=== PATIENT | male | born 1975 | race Caucasian/White ===

== ENCOUNTER 2017-03-23 14:08 | Emergency (ER) | payer BC ==
[~2017-03-23] VITALS: Ht 180.3 cm; Wt 142.4 kg
[2017-03-23 14:20] VITALS: TEMP 37; Ht 180.3 cm; Wt 142.4 kg
--- NOTE | 2017-03-23 14:55 | EMERGENCY ROOM VISIT NOTE ---
History First contact with patient: 14:39 Chief Complaint: FLANK PAIN Stated Complaint: CLAMMY,SWEATY,R SIDE KIDNEY PAIN,BURN W/ URINATION History of Present Illness The patient is a 41 year old male who presents to the Emergency Room with complaints of right sided flank pain and dysuria. The patient woke up this morning at 4am with right sided flank pain that was sharp, 4/10, constant pain. Throughout the day the pain became worse reaching a 10/10 and began to radiate to his right lower quadrant/groin region. The patient also states that his urine began to change color becoming light and then dark orange at about 9am. He also states that he is having a minor amount of hesitancy with urination in addition to burning sensation. He has not had much of an appetite today, only eating an apple and banana, and has the sensation of butterflies in his stomach. He does have a previous history of kidney stones for which he was treated at [facility] with Flomax and pain medication. Review of Systems See HPI for pertinent positives and negatives. A total of ten systems were reviewed and were otherwise negative. Constitutional: No fever, No chills, No fatigue Respiratory: No cough, No sputum, No shortness of breath Cardiovascular: No chest pain, No edema, No palpitations Abdomen: No pain, No nausea, No vomiting, No diarrhea, No constipation Genitourinary - Male: + hematuria, + dysuria, + urinary hesitancy, No urinary urgency, No urinary retention, No urinary incontinence Neurologic: No numbness/tingling, No vertigo Past Medical/Surgical History Medical Problems: (1) Kidney stones Surgical Problems: (1) Hx of tonsillectomy Social History Smoking Status: Never Smoker Current/Historical Medications Scheduled Aspirin (Aspirin 81), 81 MG PO DAILY Ipratropium-Albuterol (Combivent Respimat), 1 PUFFS INH QID Multiple Vitamin (Multivitamin), 1 TAB PO DAILY Physical Exam Vital Signs Date Time Temp Pulse Resp B/P (MAP) Pulse Ox O2 Delivery O2 Flow Rate FiO2 03/23/17 17:41 72 16 124/72 96 Room Air 03/23/17 16:41 85 16 122/72 96 Room Air 03/23/17 14:20 37.0 97 20 129/88 96 Room Air Physical Exam GENERAL: Awake, alert, well-appearing, in no distress HENT: Normocephalic, atraumatic. EYES: Normal conjunctiva. Sclera non-icteric. NECK: Supple. No nuchal rigidity. RESPIRATORY: Clear to auscultation. CARDIAC: Regular rate, normal rhythm. Extremities warm and well perfused. Pulses equal. ABDOMEN: Soft, non-distended. No tenderness to palpation. No rebound or guarding. No masses. RECTAL: Deferred. MUSCULOSKELETAL: Chest examination reveals no tenderness. The back is symmetrical on inspection without obvious abnormality. Right sided CVA tenderness to palpation. No joint edema. LOWER EXTREMITIES: Calves are equal size bilaterally and non-tender. No edema. No discoloration. NEURO: Normal sensorium. No sensory or motor deficits noted. SKIN: No rash or jaundice noted. Medical Decision & Procedures Laboratory Results 03/23/17 15:25 Red Blood Count 5.25, Mean Corpuscular Volume 89.3, Mean Corpuscular Hemoglobin 29.0, Mean Corpuscular Hemoglobin Concent 32.4, Mean Platelet Volume 9.6, Neutrophils (%) (Auto) 86.9, Lymphocytes (%) (Auto) 8.1, Monocytes (%) (Auto) 4.3, Eosinophils (%) (Auto) 0.2, Basophils (%) (Auto) 0.1, Neutrophils # (Auto) 11.00, Lymphocytes # (Auto) 1.03, Monocytes # (Auto) 0.54, Eosinophils # (Auto) 0.02, Basophils # (Auto) 0.01 03/23/17 15:25 Test 03/23/17 00:00 03/23/17 15:25 Urine Color DK YELLOW Urine Appearance CLOUDY (CLEAR) Urine pH 7.0 (4.5-7.5) Urine Specific [place] 1.021 (1.000-1.030) Urine Protein TRACE (NEG) Urine Glucose (UA) NEG (NEG) Urine Ketones TRACE (NEG) Urine Occult Blood 3+ (NEG) Urine Nitrite NEG (NEG) Urine Bilirubin NEG (NEG) Urine Urobilinogen NEG (NEG) Urine Leukocyte Esterase SMALL (NEG) Urine WBC (Auto) 5-10 /hpf (0-5) Urine RBC (Auto) >30 /hpf (0-4) Urine Hyaline Casts (Auto) 1-5 /lpf (0-5) Urine Epithelial Cells (Auto) 10-20 /lpf (0-5) Urine Bacteria (Auto) NEG (NEG) White Blood Count 12.65 K/uL (4.8-10.8) Red Blood Count 5.25 M/uL (4.7-6.1) Hemoglobin 15.2 g/dL (14.0-18.0) Hematocrit 46.9 % (42-52) Mean Corpuscular Volume 89.3 fL (80-100) Mean Corpuscular Hemoglobin 29.0 pg (25-34) Mean Corpuscular Hemoglobin Concent 32.4 g/dl (32-36) Platelet Count 320 K/uL (130-400) Mean Platelet Volume 9.6 fL (7.4-10.4) Neutrophils (%) (Auto) 86.9 % Lymphocytes (%) (Auto) 8.1 % Monocytes (%) (Auto) 4.3 % Eosinophils (%) (Auto) 0.2 % Basophils (%) (Auto) 0.1 % Neutrophils # (Auto) 11.00 K/uL (1.4-6.5) Lymphocytes # (Auto) 1.03 K/uL (1.2-3.4) Monocytes # (Auto) 0.54 K/uL (0.11-0.59) Eosinophils # (Auto) 0.02 K/uL (0-0.5) Basophils # (Auto) 0.01 K/uL (0-0.2) RDW Standard Deviation 43.7 fL (36.4-46.3) RDW Coefficient of Variation 13.3 % (11.5-14.5) Immature Granulocyte % (Auto) 0.4 % Immature Granulocyte # (Auto) 0.05 K/uL (0.00-0.02) Anion Gap 8.0 mmol/L (3-11) Est Creatinine Clear Calc Drug Dose 147.9 ml/min Estimated GFR () 115.4 Estimated GFR (Non- 99.6 BUN/Creatinine Ratio 13.4 (10-20) Calcium Level 9.5 mg/dl (8.5-10.1) C-Reactive Protein 0.61 mg/dl (0-0.29) Medications Administered Medications (Trade) Dose Ordered Sig/Supriya Route Start Time Stop Time Status Last Admin Dose Admin Ketorolac Tromethamine (Toradol Inj) 10 mg NOW ONCE IV. 03/23/17 15:15 03/23/17 15:16 DC 03/23/17 15:35 10 MG Ondansetron HCl (Zofran Inj) 4 mg NOW STAT IV 03/23/17 15:01 03/23/17 15:04 DC 03/23/17 15:35 4 MG Sodium Chloride 1,000 ml @ 1,000 mls/hr Q1H STAT IV 03/23/17 15:01 03/23/17 16:00 DC 03/23/17 15:34 1,000 MLS/HR ED Course Patient is a 41 year old male that presents with a 12 hour history of right sided flank pain - On exam right sided flank pain identified - Patient confirms previous history of right sided nephrolithiasis Labs/ Imaging Ordered: - Right sided kidney US - UA - BMP - CBC - Calcium - CRP Medications - Toradol 10mg IV - 4mg Zofran - 1L NS Bolus Medical Decision Patient is a 41 year old male that presents with a 12 hour history of right sided flank pain Etiologies such as nephrolithiasis, renal colic, appendicitis, diverticulitis, mesenteric ischemia, aortic pathology, infections, inflammatory bowel disease, PUD, biliary pathology, UTI, as well as others were entertained. - Urinalysis revealed 3+ gross blood - Renal US showed 4mm right renal calculus but not ureteral calculus - CT Abd/Pelvis showed right sided minimally/partially obstructing calculus mid right ureter measuring 3 mm - Patient pain and nausea resolved with 4mg IV Morphine and 4mg IV Zofran - Based on imaging showing ureteral calculus and symptoms including hematuria, patient diagnosed with right ureteral calculus - Patient to be discharged home with Oxycodone IR, Flomax, and Phenergan - Follow up with primary care physician in next week Impression Primary Impression: Right ureteral calculus Additional Impression: Right flank pain Departure Information Dispostion Home / Self-Care Condition GOOD Prescriptions Promethazine Hcl (Phenergan) 25 Mg Tab 25 MG PO Q6H Y for Nausea for 5 Days, #20 TAB Prov: Jeffry Bennett MD 03/23/17 Tamsulosin Hcl (FLOMAX) 0.4 Mg Cap 0.4 MG PO DAILY for 7 Days, #7 CAP Prov: Jeffry Bennett MD 03/23/17 Referrals No Doctor, Assigned (PCP) Patient Instructions [facility] Additional Instructions KIDNEY STONE INSTRUCTIONS: Oxycodone Immediate Release (OxyIR) 5mg: Take 1-2 pills every four hours as needed for pain. Avoid alcohol, operating machinery or dangerous equipment, working on ladders or roofs, DRIVING, or situations where being under the influence may be dangerous. It is recommended to use an oake-fal-xjzelmh stool softener such as Colace, 100mg twice daily while taking this medication to avoid constipation. Phenergan 25mg: Take one every six hours as needed for nausea. Avoid alcohol, operating machinery or dangerous equipment, working on ladders or roofs, DRIVING , or situations where being under the influence may be dangerous. Flomax 0.4mg: Take one daily for kidney stones. Discontinue after the stone passes. Ibuprofen(Motrin, Advil) may be used for fever or pain. Use 600mg every six hours as needed. Take with food. Avoid using more than 2400mg in a 24 hour period. Do not use 2400mg per day for more than three consecutive days without physician direction. Prolonged inappropriate use can lead to stomach upset or ulcers. This medication can be taken if you need to drive, work, or perform activities which may be dangerous when taking narcotic pain medication. (AND/OR) Acetaminophen(Tylenol) may be used for fever or pain. Use 1000mg every six hours as needed. Avoid using more than 4000mg in a 24 hour period. This medication can be taken if you need to drive, work, or perform activities which may be dangerous when taking narcotic pain medication. Strain your urine and collect all the stones or debris for the urologists. Rest and avoid strenuous activity until your stone passes and symptoms resolve. Drink plenty of fluids. Return to the ER for worsening abdominal or back pain, vomiting, fevers, passing out, or as needed. Resident Tracking Resident Involvement: Resident Care Provided Care Provided: Adult ED Problem Qualifiers
[2017-03-23] MEDS ORDERED: ONDANSETRON INJ 2 MG/ML 2 ML VIAL IV STA (15:01)
[2017-03-23] MEDS ORDERED: SODIUM CHLORIDE 0.9% 1000ML 1,000 ML IV STA (15:01)
[2017-03-23] MEDS ORDERED: ASPI-435 PO (15:13)
[2017-03-23] MEDS ORDERED: MULTTAB58 PO (15:13)
[2017-03-23] MEDS ORDERED: IPRA1AER2 INH (15:13)
[2017-03-23] MEDS ORDERED: KETOROLAC TROMETHAMINE 15 MG/ML VIAL IV. ONE (15:15)
[2017-03-23 15:40] LABS: BASO % 0.1 %; BASO ABS # 0.01 K/uL (0-0.2); COMPLETE YES; EOS % 0.2 %; HEMATOCRIT 46.9 % (42-52); IG% 0.4 %; LYMPH % 8.1 %; LYMPH ABS # 1.03 K/uL (1.2-3.4); MEAN CELL VOLUME 89.3 fL (80-100); MEAN CORPUSCULAR HGB CONC 32.4 g/dl (32-36); MEAN PLATELET VOLUME 9.6 fL (7.4-10.4); MONO % 4.3 %; NEUT % 86.9 %; PLATELET COUNT 320 K/uL (130-400); RED BLOOD COUNT 5.25 M/uL (4.7-6.1); WHITE BLOOD COUNT 12.65 K/uL (4.8-10.8)
[2017-03-23 15:56] LABS: URINE APPEARANCE CLOUDY (CLEAR); URINE BILIRUBIN NEG (NEG); URINE COLOR DK YELLOW; URINE NITRITE NEG (NEG); URINE SPECIFIC GRAVITY 1.021 (1.000-1.030); UROBILINOGEN NEG (NEG)
[2017-03-23 15:59] LABS: BUN/CREATININE RATIO 13.4 (10-20); C-REACTIVE PROTEIN 0.61 mg/dl (0-0.29); CALCIUM 9.5 mg/dl (8.5-10.1); CREATININE 0.94 mg/dl (0.60-1.40); POTASSIUM 4.3 mmol/L (3.5-5.1)
[2017-03-23 16:08] LABS: MANUAL MICROSCOPIC REQUIRED? NO; REVIEW REQ? NO
--- NOTE | 2017-03-23 16:26 | DIAGNOSTIC IMAGING REPORT ---
EXAMINATION: RENAL ULTRASOUND CLINICAL HISTORY: Right-sided flank pain COMPARISON STUDY: None FINDINGS: The right kidney measures 11.4 cm. The left kidney measures 11.9 cm. There is no evidence of hydronephrosis. There is a 4 mm echogenic focus within the right kidney. This could indicate a nonshadowing stone. The bladder was not well-distended. No abnormalities are visualized. Neither ureteral jet was visualized. There is increased hepatic echogenicity, likely secondary to hepatic steatosis. IMPRESSION : 1. Equivocal 4 mm right renal calculus 2. No evidence of hydronephrosis 3. Hepatic steatosis Electronically signed by: Gilles Lopez M.D. 03/23/2017 4:25 PM Dictated Date/Time: 03/23/2017 4:24 PM
[2017-03-23] MEDS ORDERED: MoRPHine SULFATE 4 MG/ML 1 ML CARP\\VIAL IV STA (16:50)
--- NOTE | 2017-03-23 17:35 | DIAGNOSTIC IMAGING REPORT ---
ABD/PELVIS WITHOUT FOR STONE CT DOSE: 2230.75 mGy.cm HISTORY: Flank pain right flank pain eval for sotne TECHNIQUE: Multiaxial CT images of the abdomen and pelvis were performed without the use of intravenous and oral contrast according to the standard department stone protocol. A dose lowering technique was utilized adhering to the principles of ALARA. COMPARISON STUDY: None. FINDINGS: Lung bases are clear. Liver spleen and pancreas are unremarkable. There are multiple bilateral renal nonobstructing calcifications. These measure 2 to 4 mm at maximum. Pancreas is partially fatty replaced. There is a partially obstructing calculus of the mid right ureter measuring 3 mm. This is best seen transaxial image 124. No left-sided calcifications are present. The bladder is midline. There are no significant bladder calcifications. IMPRESSION: 1. Minimally/partially obstructing calculus mid right ureter measuring 3 mm. 2. Slight fullness right renal collecting system and right ureter. 3. Multiple bilateral renal nonobstructing calcifications. The above report was generated using voice recognition software. It may contain grammatical, syntax or spelling errors. Electronically signed by: Bird Jean M.D. 03/23/2017 5:34 PM Dictated Date/Time: 03/23/2017 5:30 PM
[2017-03-23 17:41] VITALS: BP 124/72; PULSE 72; O2SAT 96
[2017-03-23] MEDS ORDERED: TAMS0.4C38 PO (18:32)
[2017-03-23] MEDS ORDERED: PROM25TA9 PO (18:32)
[2017-03-23] MEDS ORDERED: OXYC1TAB3 PO (18:36)
--- NOTE | 2017-03-23 21:50 | EMERGENCY ROOM VISIT NOTE ---
History Report prepared by Tori: Moe Sandoval Under the Supervision of: Dr. Jakob Clay M.D. First contact with patient: 14:39 Chief Complaint: FLANK PAIN Stated Complaint: CLAMMY,SWEATY,R SIDE KIDNEY PAIN,BURN W/ URINATION History of Present Illness The patient is a 41 year old male who presents to the Emergency Room with complaints of constant right sided pain that started at 0800. He currently rates his pain as a 7/10 in severity. The patient describes the pain as a sharp sensation. The patient states that he woke up this morning with sharp pain in his right side. He reports that the pain was a 10/10 around 1000. The patient states that the pain started to radiate into his right groin area. He also reports that he has been experiencing nausea. The patient states that throughout the day he noticed a burning sensation and hesitancy while urinating. He also reports that his urine started to turn a dark orange color. The patient reports that his pain turned into a dull sensation here in the ED. He states that he had a history of kidney stones 2 years ago, which he was treated with Flomax for. The patient admits that his previous kidney stone symptoms feel similar to his current symptoms. The patient admits to a history of a tonsillectomy, but denies an appendectomy. He denies any vomiting, chest pain, fevers, and shortness of breath. Source of History: patient Onset: 0800 Position: other (right side) Symptom Intensity: 7/10 Quality: sharp, dull Timing: constant Associated Symptoms: + nausea, + urinary symptoms, No fevers, No chest pain , No SOB, No vomiting Review of Systems See HPI for pertinent positives & negatives. A total of 10 systems reviewed and were otherwise negative. Past Medical & Surgical Medical Problems: (1) Kidney stones Surgical Problems: (1) Hx of tonsillectomy Family History Patient reports no known family medical history. Social History Smoking Status: Never Smoker Occupation Status: employed Current/Historical Medications Scheduled Aspirin (Aspirin 81), 81 MG PO DAILY Ipratropium-Albuterol (Combivent Respimat), 1 PUFFS INH QID Multiple Vitamin (Multivitamin), 1 TAB PO DAILY Tamsulosin Hcl (Flomax), 0.4 MG PO DAILY Scheduled PRN Oxycodone Ir (Roxicodone Ir), 5 MG PO Q4H PRN for Pain Promethazine Hcl (Phenergan), 25 MG PO Q6H PRN for Nausea Allergies Coded Allergies: No Known Allergies (Unverified , 03/23/17) Physical Exam Vital Signs Date Time Temp Pulse Resp B/P (MAP) Pulse Ox O2 Delivery O2 Flow Rate FiO2 03/23/17 17:41 72 16 124/72 96 Room Air 03/23/17 16:41 85 16 122/72 96 Room Air 03/23/17 14:20 37.0 97 20 129/88 96 Room Air Physical Exam Constitutional: Vital signs reviewed. Eyes: Pupils are equal round reactive to light. Conjunctiva are noninjected. ENT: Pharynx is clear without erythema or exudate. Mucous membranes are moist. Neck supple without meningeal signs. Respiratory: Clear to auscultation bilaterally. Breath sounds are equal bilaterally. Cardiovascular: Regular rate and rhythm. No rubs or gallops. GI: Soft, nondistended and nontender. Bowel sounds are present. No tenderness at McBurney's point. Musculoskeletal: No peripheral edema. No lower extremity tenderness. Right sided CVA tenderness. Integumentary: No cyanosis. Neurological: The patient is awake and alert. No focal deficits. Psychiatric: Normal affect. Medical Decision & Procedures ER Provider Diagnostic Interpretation: Radiology results as stated below per my review and the radiologist's interpretation: EXAMINATION: RENAL ULTRASOUND CLINICAL HISTORY: Right-sided flank pain COMPARISON STUDY: None FINDINGS: The right kidney measures 11.4 cm. The left kidney measures 11.9 cm. There is no evidence of hydronephrosis. There is a 4 mm echogenic focus within the right kidney. This could indicate a nonshadowing stone. The bladder was not well-distended. No abnormalities are visualized. Neither ureteral jet was visualized. There is increased hepatic echogenicity, likely secondary to hepatic steatosis. IMPRESSION : 1. Equivocal 4 mm right renal calculus 2. No evidence of hydronephrosis 3. Hepatic steatosis Electronically signed by: Gilles Lopez M.D. 03/23/2017 4:25 PM Dictated Date/Time: 03/23/2017 4:24 PM ABD/PELVIS WITHOUT FOR STONE CT DOSE: 2230.75 mGy.cm HISTORY: Flank pain right flank pain eval for sotne TECHNIQUE: Multiaxial CT images of the abdomen and pelvis were performed without the use of intravenous and oral contrast according to the standard department stone protocol. A dose lowering technique was utilized adhering to the principles of ALARA. COMPARISON STUDY: None. FINDINGS: Lung bases are clear. Liver spleen and pancreas are unremarkable. There are multiple bilateral renal nonobstructing calcifications. These measure 2 to 4 mm at maximum. Pancreas is partially fatty replaced. There is a partially obstructing calculus of the mid right ureter measuring 3 mm. This is best seen transaxial image 124. No left-sided calcifications are present. The bladder is midline. There are no significant bladder calcifications. IMPRESSION: 1. Minimally/partially obstructing calculus mid right ureter measuring 3 mm. 2. Slight fullness right renal collecting system and right ureter. 3. Multiple bilateral renal nonobstructing calcifications. The above report was generated using voice recognition software. It may contain grammatical, syntax or spelling errors. Electronically signed by: Bird Jean M.D. 03/23/2017 5:34 PM Dictated Date/Time: 03/23/2017 5:30 PM Laboratory Results 03/23/17 15:25 Red Blood Count 5.25, Mean Corpuscular Volume 89.3, Mean Corpuscular Hemoglobin 29.0, Mean Corpuscular Hemoglobin Concent 32.4, Mean Platelet Volume 9.6, Neutrophils (%) (Auto) 86.9, Lymphocytes (%) (Auto) 8.1, Monocytes (%) (Auto) 4.3, Eosinophils (%) (Auto) 0.2, Basophils (%) (Auto) 0.1, Neutrophils # (Auto) 11.00, Lymphocytes # (Auto) 1.03, Monocytes # (Auto) 0.54, Eosinophils # (Auto) 0.02, Basophils # (Auto) 0.01 03/23/17 15:25 Test 03/23/17 00:00 03/23/17 15:25 Urine Color DK YELLOW Urine Appearance CLOUDY (CLEAR) Urine pH 7.0 (4.5-7.5) Urine Specific [place] 1.021 (1.000-1.030) Urine Protein TRACE (NEG) Urine Glucose (UA) NEG (NEG) Urine Ketones TRACE (NEG) Urine Occult Blood 3+ (NEG) Urine Nitrite NEG (NEG) Urine Bilirubin NEG (NEG) Urine Urobilinogen NEG (NEG) Urine Leukocyte Esterase SMALL (NEG) Urine WBC (Auto) 5-10 /hpf (0-5) Urine RBC (Auto) >30 /hpf (0-4) Urine Hyaline Casts (Auto) 1-5 /lpf (0-5) Urine Epithelial Cells (Auto) 10-20 /lpf (0-5) Urine Bacteria (Auto) NEG (NEG) White Blood Count 12.65 K/uL (4.8-10.8) Red Blood Count 5.25 M/uL (4.7-6.1) Hemoglobin 15.2 g/dL (14.0-18.0) Hematocrit 46.9 % (42-52) Mean Corpuscular Volume 89.3 fL (80-100) Mean Corpuscular Hemoglobin 29.0 pg (25-34) Mean Corpuscular Hemoglobin Concent 32.4 g/dl (32-36) Platelet Count 320 K/uL (130-400) Mean Platelet Volume 9.6 fL (7.4-10.4) Neutrophils (%) (Auto) 86.9 % Lymphocytes (%) (Auto) 8.1 % Monocytes (%) (Auto) 4.3 % Eosinophils (%) (Auto) 0.2 % Basophils (%) (Auto) 0.1 % Neutrophils # (Auto) 11.00 K/uL (1.4-6.5) Lymphocytes # (Auto) 1.03 K/uL (1.2-3.4) Monocytes # (Auto) 0.54 K/uL (0.11-0.59) Eosinophils # (Auto) 0.02 K/uL (0-0.5) Basophils # (Auto) 0.01 K/uL (0-0.2) RDW Standard Deviation 43.7 fL (36.4-46.3) RDW Coefficient of Variation 13.3 % (11.5-14.5) Immature Granulocyte % (Auto) 0.4 % Immature Granulocyte # (Auto) 0.05 K/uL (0.00-0.02) Anion Gap 8.0 mmol/L (3-11) Est Creatinine Clear Calc Drug Dose 147.9 ml/min Estimated GFR () 115.4 Estimated GFR (Non- 99.6 BUN/Creatinine Ratio 13.4 (10-20) Calcium Level 9.5 mg/dl (8.5-10.1) C-Reactive Protein 0.61 mg/dl (0-0.29) Laboratory results as reviewed by me. Medications Administered Medications (Trade) Dose Ordered Sig/Supriya Route Start Time Stop Time Status Last Admin Dose Admin Ketorolac Tromethamine (Toradol Inj) 10 mg NOW ONCE IV. 03/23/17 15:15 03/23/17 15:16 DC 03/23/17 15:35 10 MG Ondansetron HCl (Zofran Inj) 4 mg NOW STAT IV 03/23/17 15:01 03/23/17 15:04 DC 03/23/17 15:35 4 MG Sodium Chloride 1,000 ml @ 1,000 mls/hr Q1H STAT IV 03/23/17 15:01 03/23/17 16:00 DC 03/23/17 15:34 1,000 MLS/HR ED Course 1500: The patient was evaluated in room C03. A complete history and physical exam was performed. 1501: Ordered Sodium Chloride 1000 ml @ 1000 mls/hr IV, Zofran Injection 4 mg IV. 1515: Ordered Toradol Injection 10 mg IV. 1707: I reevaluated the patient and he reports worsening pain because the graphics edit technician had been pressing on his abdomen. I discussed his test results and recommended a CT scan, which he agreed to. Medical Decision This is a 41-year-old male who presents with right-sided flank pain. Differential diagnosis includes renal colic, ureterolithiasis, appendicitis, UTI , pyelonephritis. I did perform a limited focused review of portions of the patient's old chart on the electronic medical record. The patient has had no recent pertinent visits to this hospital. I did evaluate the patient as noted above. IV access was established. I did personally review the patient's urinalysis as described above. I did order and review the patient's blood work as noted in the electronic medical record. His white blood cell count is elevated. Ultrasound of the kidneys was unremarkable other than an equivocal intrarenal stone. On reassessment the patient is having some worsening pain. I did order a CT of the abdomen and pelvis. I did review the images myself as well as the radiology report as described above. He does have a mid ureteral stone measuring 3 mm on the right side. The patient was treated with Toradol, normal saline and Zofran. He was informed of his test results and discharged in good condition. Resident Physician Supervision Note: I did evaluate and examine this patient myself. I did guide management for the patient. I agree with the resident's ( ) assessment as discussed. Please see the resident's dictation for further details. [place] Drug Monitoring Program Search Results: patient reviewed within database, no issues identified Medication Reconcilliation Current Medication List: was personally reviewed by me Blood Pressure Screening Patient's blood pressure: Elevated blood pressure Impression Primary Impression: Right ureteral calculus Scribe Attestation The scribe's documentation has been prepared under my direct and personally reviewed by me in its entirety. I confirm that the note above accurately reflects all work, treatment, procedures, and medical decision making performed by me. Departure Information Dispostion Home / Self-Care Prescriptions Oxycodone Ir (Roxicodone Ir) 5 Mg Tab 5 MG PO Q4H Y for Pain, #20 TAB Prov: Jakob Clay M.D. 03/23/17 Promethazine Hcl (Phenergan) 25 Mg Tab 25 MG PO Q6H Y for Nausea for 5 Days, #20 TAB Prov: Jeffry Bennett MD 03/23/17 Tamsulosin Hcl (FLOMAX) 0.4 Mg Cap 0.4 MG PO DAILY for 7 Days, #7 CAP Prov: Jeffry Bennett MD 03/23/17 Referrals No Doctor, Assigned (PCP) Forms HOME CARE DOCUMENTATION FORM, IMPORTANT VISIT INFORMATION Patient Instructions My [facility] Additional Instructions KIDNEY STONE INSTRUCTIONS: Oxycodone Immediate Release (OxyIR) 5mg: Take 1-2 pills every four hours as needed for pain. Avoid alcohol, operating machinery or dangerous equipment, working on ladders or roofs, DRIVING, or situations where being under the influence may be dangerous. It is recommended to use an [id number] stool softener such as Colace, 100mg twice daily while taking this medication to avoid constipation. Phenergan 25mg: Take one every six hours as needed for nausea. Avoid alcohol, operating machinery or dangerous equipment, working on ladders or roofs, DRIVING , or situations where being under the influence may be dangerous. Flomax 0.4mg: Take one daily for kidney stones. Discontinue after the stone passes. Ibuprofen(Motrin, Advil) may be used for fever or pain. Use 600mg every six hours as needed. Take with food. Avoid using more than 2400mg in a 24 hour period. Do not use 2400mg per day for more than three consecutive days without physician direction. Prolonged inappropriate use can lead to stomach upset or ulcers. This medication can be taken if you need to drive, work, or perform activities which may be dangerous when taking narcotic pain medication. (AND/OR) Acetaminophen(Tylenol) may be used for fever or pain. Use 1000mg every six hours as needed. Avoid using more than 4000mg in a 24 hour period. This medication can be taken if you need to drive, work, or perform activities which may be dangerous when taking narcotic pain medication. Strain your urine and collect all the stones or debris for the urologists. Rest and avoid strenuous activity until your stone passes and symptoms resolve. Drink plenty of fluids. Return to the ER for worsening abdominal or back pain, vomiting, fevers, passing out, or as needed.
== END 2017-03-23 18:49 | disposition home or self-care (01) ==
LOC: C.EDC 14:50
DX: N20.1 Calculus of ureter (principal); R10.9 Unspecified abdominal pain; Z87.442 Personal history of urinary calculi; Z90.89 Acquired absence of other organs; Z79.82 Long term (current) use of aspirin